=== PATIENT | male | born 1990 | race Caucasian/White ===

== ENCOUNTER 2016-12-02 09:39 | Emergency (ER) | payer BC ==
[~2016-12-02] VITALS: Ht 175.3 cm; Wt 81.3 kg
[~2016-12-02 09:39] MED LIST: MULT-106 PO
[2016-12-02 09:41] VITALS: BP 117/74; TEMP 36.6; Ht 175.3 cm; Wt 81.3 kg
--- NOTE | 2016-12-02 10:08 | EMERGENCY ROOM VISIT NOTE ---
ED Visit Note First contact with patient: 09:47 CHIEF COMPLAINT: Suture removal HISTORY OF PRESENT ILLNESS: This 26-year-old male patient returns to the ED today for removal of sutures that were placed 11 days ago. There has been no swelling, redness, or drainage from the wound. The patient feels like the laceration is healing well. REVIEW OF SYSTEMS: A 6 system review of systems was completed with positives and pertinent negatives listed in the HPI. PMH: Unchanged from previous visit. ALLERGIES: Benadryl PHYSICAL EXAM: Vital Signs: Reviewed Nurse's notes, vital signs stable. GENERAL : This is a 26-year-old male, in no acute distress. SKIN: There is a sutured wound on the scalp with no signs of infection. There is no erythema, swelling, or tenderness. EMERGENCY DEPARTMENT COURSE: 6 sutures and 3 meka were removed without any difficulty and there was no separation of the wound edges. The patient was discharged home in good condition. DIAGNOSIS: Healing laceration and suture removal DISCHARGE INSTRUCTIONS AND TREATMENT: Wash any remaining crusts off of the wound today and resume your normal activities. Current/Historical Medications Scheduled Multiple Vitamins W/ Minerals (One Daily Mens), 1 TAB PO DAILY Allergies Coded Allergies: Diphenhydramine (Unverified Allergy, Unknown, UNKNOWN, 02/26/16) Vital Signs Date Time Temp Pulse Resp B/P (MAP) Pulse Ox O2 Delivery O2 Flow Rate FiO2 12/02/16 10:26 72 16 96 12/02/16 09:41 36.6 74 16 117/74 97 Room Air Departure Information Impression Primary Impression: Encounter for removal of sutures Dispostion Home / Self-Care Condition GOOD Referrals No Doctor, Assigned (PCP) Patient Instructions [facility] Additional Instructions Wash any remaining crusts off of the wound today and resume your normal activities.
[2016-12-02 10:26] VITALS: PULSE 72; O2SAT 96
== END 2016-12-02 10:27 | disposition home or self-care (01) ==
LOC: C.EDB 09:40 → C.EDA 10:27
DX: Z48.02 Encounter for removal of sutures (principal)

== ENCOUNTER 2017-06-11 03:53 | Emergency (ER) | payer BC, OTHER ==
[2017-06-11] MEDS ORDERED: LORAZEPAM 2 MG/ML 1 ML VIAL IV ONE (03:55)
[2017-06-11] MEDS ORDERED: ETOMIDATE 2 MG/ML 20 ML VIAL IV ONE (03:55)
[2017-06-11] MEDS ORDERED: SUCCINYLCHOLINE CHLORIDE 20 MG/ML 10 ML VIAL IV ONE (03:55)
[2017-06-11] MEDS ORDERED: RAPID SEQUENCE INDUCTION BAG ONE (03:57)
[2017-06-11] MEDS ORDERED: SODIUM CHLORIDE 0.9% 1000ML 2,000 ML IV STA (04:04)
[2017-06-11 04:05] VITALS: O2SAT 98
[2017-06-11] MEDS ORDERED: PROPOFOL IV EMULSION 10 MG/ML 100 ML VIAL IV ONE ×2 (04:07→06:42)
[2017-06-11] MEDS ORDERED: LORAZEPAM 2 MG/ML 1 ML VIAL ONE (04:10)
--- NOTE | 2017-06-11 04:13 | EMERGENCY ROOM VISIT NOTE ---
History Report prepared by Maria Guadalupe: Derik Mcconnell Under the Supervision of: Dr. Emi Castellanos D.O. First contact with patient: 03:56 Stated Complaint: FALL History of Present Illness The patient is a 26 year old male who presents to the Emergency Room with complaints of constant head trauma following a fall occurring tonight. Per EMS, the patient was reported to have fallen about 10-15 feet out of a first story window. EMS notes that the patient was found face down in the dirt directly below the window. EMS reports that the patient was reported to have jumped out of the window or have fallen over the railing. EMS states that the patient was short of respirations and found to also have a right knee injury and abrasions to the right side. Upon transport, EMS notes that the patient was found to be breathing 30/40 times/minute, have an upright gaze, equal lung sounds, a stable pelvis, a blood sugar level of 117, and a blood pressure of 159/96. HPI limited secondary to unresponsiveness. Source of History: EMS History Limited By: other (unresponsiveness) Onset: tonight Position: head Timing: constant Note: EMS notes that the patient also has a right knee injury, and abrasions to the right side. Review of Systems ROS limited secondary to unresponsiveness. Past Medical & Surgical Medical Problems: (1) No chronic problems Family History Diabetes mellitus Heart disease Hypertension Seizures Social History Smoking Status: Never Smoker Alcohol Use: occasionally Drug Use: none Marital Status: single Housing Status: lives with roommate Occupation Status: [employer] student Current/Historical Medications Unable to Obtain Active Prescriptions or Reported Meds Allergies Coded Allergies: Diphenhydramine (Unverified Allergy, Unknown, UNKNOWN, 02/26/16) Physical Exam Vital Signs Date Time Temp Pulse Resp B/P (MAP) Pulse Ox O2 Delivery O2 Flow Rate FiO2 06/11/17 06:25 90 13 92/55 100 06/11/17 06:20 87 11 102/70 100 06/11/17 06:15 96 22 108/62 100 06/11/17 06:10 89 15 100/62 100 06/11/17 06:05 114 20 138/75 99 06/11/17 06:00 87 18 109/66 100 06/11/17 05:57 36.4 103 20 107/63 100 Mechanical Ventilator 35 06/11/17 05:50 90 13 112/63 100 06/11/17 05:45 103 20 137/82 100 06/11/17 05:40 91 15 115/70 100 06/11/17 05:35 85 15 111/68 100 06/11/17 05:31 98 23 120/75 100 Mechanical Ventilator 06/11/17 05:26 87 15 107/56 100 Mechanical Ventilator 06/11/17 05:21 85 16 111/80 100 Mechanical Ventilator 06/11/17 05:16 98 25 101/66 100 Mechanical Ventilator 06/11/17 05:11 97 27 118/78 100 Mechanical Ventilator 06/11/17 05:06 88 25 115/68 100 Mechanical Ventilator 06/11/17 05:02 35 06/11/17 05:01 85 18 107/66 100 Mechanical Ventilator 06/11/17 04:56 92 18 104/65 100 Mechanical Ventilator 06/11/17 04:51 88 20 108/65 100 Mechanical Ventilator 06/11/17 04:47 91/61 100 Mechanical Ventilator 06/11/17 04:41 90 20 122/76 100 Mechanical Ventilator 06/11/17 04:39 96 130/81 100 Mechanical Ventilator 06/11/17 04:05 99 06/11/17 04:05 35.9 129 24 173/118 98 Ambu-Bag 06/11/17 04:05 98 Ambu-Bag Physical Exam GENERAL: well appearing, well nourished, non-toxic, smell of ETOH, patient back boarded and collared, no copious secretions, vital signs stable EYE EXAM: normal conjunctiva, PERRL and EOM's grossly intact, pupils were mildly dilated bilaterally but both reactive NOSE: Dried blood around nares bilaterally, no active bleed. No septal hematoma. OROPHARYNX: no exudate, no erythema, lips, buccal mucosa, and tongue normal and mucous membranes are moist, Dried blood noted on patient's lips, no other blood on patient's oropharynx NECK: supple, no nuchal rigidity, no adenopathy, non-tender LUNGS: Clear to auscultation. Normal chest wall mechanics, no crepitus, bilateral breath sounds HEART: no murmurs, S1 normal and S2 normal CHEST: equal rise and fall with bagging ABDOMEN: abdomen soft, non-tender, normo-active bowel sounds, no masses, no rebound or guarding, no obvious trauma, pelvis stable BACK: Back is symmetrical on inspection and there is no deformity, no midline tenderness, no CVA tenderness. RECTAL: Normal tone. SKIN: no rashes and no bruising MUSCULOSKELETAL: No crepitus to chest wall or in extremities UPPER EXTREMITIES: upper extremities are grossly normal, no obvious deformities , contusion and superficial abrasion noted to right elbow, normal distal pulses LOWER EXTREMITIES: No pitting edema, no obvious deformities, laceration to right knee, normal distal pulses NEURO EXAM: GSC 3, questionable decorticate posturing noted, no active seizures. Medical Decision & Procedures ER Provider Diagnostic Interpretation: Radiology results have been interpreted by the radiologist and reviewed by me. CT HEAD: Limited by artifact but exam is diagnostic for ICH. Intra-axial bleeds, largest in the right frontal vertex measuring about 9 mm in size. Other punctate intra- axial bleeds suspected. Subarachnoid hemorrhage suggested, example cortical sulci most prominent in region of right sylvian fissure. There could be an intra -axial bleed in this area, as well. No skull fractures identified. Radiologist: Abelardo Sterling M.D. CT FACIAL: Limited by artifact. Axial and coronal images. Fracture of nasal bones and nasal septum. CT C SPINE: Patient rotated. No evidence of acute fracture or malalignment. Radiologist: Abelardo Sterling M.D. RIGHT ELBOW X-RAY: No fracture. No dislocation. KNEE X-RAY: No fracture. No dislocation. CT CHEST With Contrast: CT ABDOMEN & PELVIS: Limited by artifact. Suspect combination and of atelectasis and lung contusions, example right upper lobe. Allowing for artifact, no aortic dissection. Limited by artifact but no traumatic findings within the abdomen or pelvis identified. There is an ossific density anterior to the lower sacrum/coccyx. Difficult exclude subtle fracture of sacrum/coccyx. No displaced fractures seen. CT T SPINE: CT L SPINE: No acute fracture or malalignment of the thoracic or lumbar spine identified. L5 pars incidentally noted. Radiologist: Abelardo Sterling M.D. KUB X-RAY: OG tube in good position. Laboratory Results 06/11/17 04:05 Red Blood Count 4.93, Mean Corpuscular Volume 92.5, Mean Corpuscular Hemoglobin 33.1, Mean Corpuscular Hemoglobin Concent 35.7, Mean Platelet Volume 8.0, Neutrophils (%) (Auto) 39.4, Lymphocytes (%) (Auto) 43.3, Monocytes (%) (Auto) 6.9, Eosinophils (%) (Auto) 9.3, Basophils (%) (Auto) 0.7, Neutrophils # (Auto) 4.43, Lymphocytes # (Auto) 4.87, Monocytes # (Auto) 0.77, Eosinophils # (Auto) 1.05, Basophils # (Auto) 0.08 06/11/17 04:05 Test 06/11/17 04:05 06/11/17 04:11 06/11/17 04:13 06/11/17 04:53 White Blood Count 11.24 K/uL (4.8-10.8) Red Blood Count 4.93 M/uL (4.7-6.1) Hemoglobin 16.3 g/dL (14.0-18.0) Hematocrit 45.6 % (42-52) Mean Corpuscular Volume 92.5 fL (80-100) Mean Corpuscular Hemoglobin 33.1 pg (25-34) Mean Corpuscular Hemoglobin Concent 35.7 g/dl (32-36) Platelet Count 252 K/uL (130-400) Mean Platelet Volume 8.0 fL (7.4-10.4) Neutrophils (%) (Auto) 39.4 % Lymphocytes (%) (Auto) 43.3 % Monocytes (%) (Auto) 6.9 % Eosinophils (%) (Auto) 9.3 % Basophils (%) (Auto) 0.7 % Neutrophils # (Auto) 4.43 K/uL (1.4-6.5) Lymphocytes # (Auto) 4.87 K/uL (1.2-3.4) Monocytes # (Auto) 0.77 K/uL (0.11-0.59) Eosinophils # (Auto) 1.05 K/uL (0-0.5) Basophils # (Auto) 0.08 K/uL (0-0.2) RDW Standard Deviation 42.4 fL (36.4-46.3) RDW Coefficient of Variation 12.6 % (11.5-14.5) Immature Granulocyte % (Auto) 0.4 % Immature Granulocyte # (Auto) 0.04 K/uL (0.00-0.02) Estimated GFR () 101.6 Estimated GFR (Non- 87.7 BUN/Creatinine Ratio 8.9 (10-20) Calcium Level 8.2 mg/dl (8.5-10.1) Total Bilirubin 0.5 mg/dl (0.2-1) Direct Bilirubin 0.2 mg/dl (0-0.2) Aspartate Amino Transf (AST/SGOT) 97 U/L (15-37) Alanine Aminotransferase (ALT/SGPT) 82 U/L (12-78) Alkaline Phosphatase 62 U/L (45-117) Total Creatine Kinase 650 U/L (39-308) Creatine Kinase MB 5.1 ng/ml (0.5-3.6) Creatine Kinase MB Ratio 0.8 (0-3.0) Troponin I < 0.015 ng/ml (0-0.045) Total Protein 8.1 gm/dl (6.4-8.2) Albumin 4.2 gm/dl (3.4-5.0) Lipase 221 U/L (73-393) Ethyl Alcohol mg/dL 330.0 mg/dl (0-3) Urine Color YELLOW Urine Appearance CLEAR (CLEAR) Urine pH 5.5 (4.5-7.5) Urine Specific [place] 1.005 (1.000-1.030) Urine Protein 2+ (NEG) Urine Glucose (UA) NEG (NEG) Urine Ketones NEG (NEG) Urine Occult Blood 3+ (NEG) Urine Nitrite NEG (NEG) Urine Bilirubin NEG (NEG) Urine Urobilinogen NEG (NEG) Urine Leukocyte Esterase NEG (NEG) Urine WBC (Auto) 0 /hpf (0-5) Urine RBC (Auto) 0-4 /hpf (0-4) Urine Hyaline Casts (Auto) 0 /lpf (0-5) Urine Epithelial Cells (Auto) 0-5 /lpf (0-5) Urine Bacteria (Auto) NEG (NEG) Urine Opiates Screen NEG (NEG) Urine Methadone, Qualitative NEG (NEG) Urine Barbiturates NEG (NEG) Urine Phencyclidine (PCP) Level NEG (NEG) Ur Amphetamine/Methamphetamine NEG (NEG) MDMA (Ecstasy) Screen NEG (NEG) Urine Benzodiazepines Screen NEG (NEG) Urine Cocaine Metabolite NEG (NEG) Urine Marijuana (THC) NEG (NEG) Bedside Chloride 99 mEq/L (101-112) Bedside Total CO2 26 mEq/l (24-31) Anion Gap 21.0 mmol/L (16-25) Bedside Blood Urea Nitrogen 11 mg/dl (7-18) Bedside Creatinine 1.6 mg/dl (0.6-1.3) Bedside Glucose (other) 116 mg/dl (70-99) Bedside Ionized Calcium (Glenn) 1.12 mmol/l (1.12-1.32) Bedside Hemoglobin 15.3 g/dl (14.0-18.0) Bedside Hematocrit 45 % (42-52) Bedside Blood Gas pH (LAB) 7.28 (7.35-7.45) Bedside Blood Gas pCO2 (LAB) 49 mmHg (35-46) Bedside Blood Gas pO2 (LAB) 195 mmHg (80-95) Bedside Blood Gas HCO3 (LAB) 23 meq/L (19-24) Bedside Blood Gas Total CO2 25 mEq/l (24-31) Bedside Blood Gas Base Excess (LAB) -4.0 meq/L (-9-1.8) Bedside Blood Gas O2 Saturation 100.0 % (90-95) Bedside Sodium 139 mEq/L (135-144) Bedside Potassium 4.4 mEq/L (3.3-5.0) Laboratory results per my review. Medications Administered Medications (Trade) Dose Ordered Sig/Bernard Route Start Time Stop Time Status Last Admin Dose Admin Cefazolin Sodium (Ancef 2000mg Iv Push) 2,000 mg NOW ONCE IV 06/11/17 04:15 06/11/17 04:16 DC 06/11/17 05:23 2,000 MG Sodium Chloride 2,000 ml @ 999 mls/hr Q2H1M STAT IV 06/11/17 04:04 06/11/17 06:04 DC 06/11/17 05:29 999 MLS/HR Propofol (Diprivan Iv Emulsion 100ml Vial) 1 dose STK-MED ONCE IV 06/11/17 04:07 06/11/17 04:08 DC 06/11/17 04:10 1 DOSE Diphtheria/ Pertussis/Tetanus Vacc (Adacel Inj) 0.5 ml ONCE ONCE IM. 06/11/17 04:15 06/11/17 04:16 DC 06/11/17 05:23 0.5 ML Lorazepam (Ativan Inj) 2 mg STK-MED ONCE .ROUTE 06/11/17 04:10 06/11/17 04:11 DC 06/11/17 04:17 2 MG Sodium Chloride 1,000 ml @ 125 mls/hr Q8H STAT IV 06/11/17 05:24 06/11/17 08:30 DC 06/11/17 05:24 125 MLS/HR Levetiracetam 1000 mg/Dextrose 110 ml @ 440 mls/hr ONE ONCE IV 06/11/17 06:00 06/11/17 06:14 DC 06/11/17 06:09 440 MLS/HR Pantoprazole Sodium 40 mg/ Syringe 10 ml @ 5 mls/min NOW ONCE IV 06/11/17 06:00 06/11/17 06:01 DC 06/11/17 06:12 5 MLS/MIN Procedure Endotracheal Intubation Indication GCS 3, suspected head trauma. The patient was on 100% oxygen via NRB prior to the procedure. Suction, airway equipment, RSI drugs, respiratory equipment, and appropriate personnel were prepared prior to the initiation of the procedure. A time out was taken. Induction was performed with Etomidate and Succinylcholine. After observing the clinical benefit of the medications, the airway was easily visualized utilizing video laryngoscopy. A 7.5 size ETT tube was placed atraumatically to 25 cm using standard technique. The cuff inflated without signs of malfunction. There were bilateral breath sounds, positive colormetric change, no gastric sounds, a good capnography waveform, and post procedure pulse oximetry was 100%. Post intubation sedation and paralysis was administered using propofol. There were no complications. ED Course 0353: The patient was evaluated in room B1. A complete history and physical exam was performed. 0355: The patient responded to an external rub although minimal movement noted. 0358: An IV was placed and a bedside US was performed. No pericardial fluid noted, no obvious fluid noted on FAST. 0359: A catheter was placed. 0404: Sodium Chloride 2000 ml @ 999 mls/hr IV IV 0405: The patient was intubated. 0413: The patient was taken to CT. 0415: Adacel Inj 0.5ml IM, Cefazolin Sodium 2000mg IV 0446: The patient was observed to have bilateral breath sounds , no copious secretion, a soft abdomen, a stable pelvis, a laceration noted to the right knee , and stable vital signs. 0514: I reviewed the patient's case with Dr. Motley - Trauma Surgery, [place]. He will accept the patient for transfer and further treatment. 0525: I attempted to call the patient's mother at the number listed on registration. There was no answer and I was unable to leave a voicemail. 0554: The patient had what looked like a seizure. Was given Ativan 2 mg IV. Repeat assessment of the patient otherwise unchanged. 0600: Pantoprazole Sodium 40 mg/Syringe 10 ml @ 5 mls/min IV, Levetiracetam 1000mg/Dextrose 110ml @ 440 mls/hr IV 0615: I reevaluated the patient. 0637: I rechecked the patient. A crew is here to transport him to [place]. 0640: I retried calling the patient's mother with a new number. 0646: I spoke to Renae Silvestre - patient's mother. She is going to drive to [place]. Medical Decision Differential diagnosis: Etiologies such as fracture, dislocation, intra-abdominal, pneumothorax, intrathoracic , intracranial, neurologic, as well as other traumatic pathologies were entertained. Patient brought in as a trauma patient on a TRAUMA ALERT activated. Patient able to be easily ventilated and maintained adequate oxygenation with assisted ventilations with BVM by the prehospital crew and while we were preparing for intubation. No gross deformities noted on primary assessment. Mild swelling noted at the nasal bridge, and dried blood noted around bilateral nares and on the patient's lips. Patient intubated on first pass, and immediately taken to CAT scan. Blood work drawn, patient maintained on propofol for adequate sedation. Patient had minimal response to painful stimuli, and at one point appeared to have what resembled decorticate posturing. Patient found to have significant family elevated serum alcohol level. Other labs reassuring. She is vital signs remained stable, IV fluids given. Laceration found of the patient's knee as well as some superficial abrasions, patient covered with IV Ancef and tetanus shot updated. Patient had briefly with nursing staff who witnessed the described as a seizure while waiting for the transportation crew, Keppra 1 g IV added as a precaution. Repeat physical exams were unchanged. Pt with blankets and bear hugger on for mild hypothermia. Several attempts made to get a hold of patient's family and his family successful after the patient was already en route to [facility]. Patient remained hemodynamically stable prior to transfer. Head Trauma GCS Score: 3 Medication Reconcilliation Current Medication List: was personally reviewed by me Blood Pressure Screening Patient's blood pressure: Normal blood pressure Consults Time Called: 05 Consulting Physician: Dr. Shin - Trauma Surgery[facility]yn Returned Call: 0514 I reviewed the patient's case with Dr. Shin - Trauma [facility] [place]. He will accept the patient for transfer and further treatment. Impression Primary Impression: Intracranial hemorrhage Additional Impressions: Closed head injury Fall Pulmonary contusion Nasal bone fracture Laceration Alcohol intoxication Hypothermia Critical Care I have personally spent greater than 75 minutes of critical care time in the direct management of this patient. This includes bedside care, interpretation of diagnostic studies, and testing, discussion with consultants, patient, and family members, and other required patient management activities. This 75 minutes is in excess of all separately billable procedures. Scribe Attestation The scribe's documentation has been prepared under my direction and personally reviewed by me in its entirety. I confirm that the note above accurately reflects all work, treatment, procedures, and medical decision making performed by me. Departure Information Dispostion Transfer Acute Care Facility Prescriptions Unable to Obtain Active Prescriptions or Reported Meds Referrals No Doctor, Assigned (PCP) Problem Qualifiers Additional Impressions: Closed head injury Encounter type: initial encounter Qualified Codes: S09.90XA - Unspecified injury of head, initial encounter Fall Encounter type: initial encounter Qualified Codes: W19.XXXA - Unspecified fall, initial encounter Pulmonary contusion Encounter type: initial encounter Laterality: bilateral Qualified Codes: S27.322A - Contusion of lung, bilateral, initial encounter Nasal bone fracture Encounter type: initial encounter Fracture type: closed Qualified Codes: S02.2XXA - Fracture of nasal bones, initial encounter for closed fracture Alcohol intoxication Complication of substance-induced condition: uncomplicated Qualified Codes: F10.920 - Alcohol use, unspecified with intoxication, uncomplicated Hypothermia Encounter type: initial encounter Qualified Codes: T68.XXXA - Hypothermia, initial encounter
[2017-06-11] MEDS ORDERED: CEFAZOLIN SOD 2000MG/15 ML IV PUSH IV ONE (04:15)
[2017-06-11] MEDS ORDERED: DIPHTHERIA/TETANUS/PERTUSSIS 0.5 ML SYR/VIAL IM. ONE (04:15)
[2017-06-11 04:17] LABS: BASO % 0.7 %; BASO ABS # 0.08 K/uL (0-0.2); EOS % 9.3 %; EOS ABS # 1.05 K/uL (0-0.5); HEMATOCRIT 45.6 % (42-52); HEMOGLOBIN 16.3 g/dL (14.0-18.0); IG# 0.04 K/uL (0.00-0.02); LYMPH % 43.3 %; LYMPH ABS # 4.87 K/uL (1.2-3.4); MEAN CELL VOLUME 92.5 fL (80-100); MEAN CORPUSCULAR HEMOGLOBIN 33.1 pg (25-34); MEAN CORPUSCULAR HGB CONC 35.7 g/dl (32-36); MONO % 6.9 %; MONO ABS # 0.77 K/uL (0.11-0.59); NEUT % 39.4 %; NEUT ABS # 4.43 K/uL (1.4-6.5); PLATELET COUNT 252 K/uL (130-400); RED CELL DISTRIBUTION WIDTH CV 12.6 % (11.5-14.5); RED CELL DISTRIBUTION WIDTH SD 42.4 fL (36.4-46.3); WHITE BLOOD COUNT 11.24 K/uL (4.8-10.8)
[2017-06-11 04:27] LABS: ISTAT CREATININE 1.6 mg/dl (0.6-1.3); ISTAT IONIZED CALCIUM 1.12 mmol/l (1.12-1.32); ISTAT POTASSIUM 3.5 mEq/L (3.3-5.0)
[2017-06-11 04:35] LABS: ALBUMIN 4.2 gm/dl (3.4-5.0); ALT/SGPT 82 U/L (12-78); AST/SGOT 97 U/L (15-37); BLOOD UREA NITROGEN 10 mg/dl (7-18); CALCIUM 8.2 mg/dl (8.5-10.1); CARBON DIOXIDE 25 mmol/L (21-32); CREATININE 1.16 mg/dl (0.60-1.40); GLUCOSE 114 mg/dl (70-99); LIPASE 221 U/L (73-393); POTASSIUM 3.5 mmol/L (3.5-5.1); SODIUM 138 mmol/L (136-145)
[2017-06-11 04:40] LABS: ALKALINE PHOSPHATASE 62 U/L (45-117); CKMB 5.1 ng/ml (0.5-3.6); TOTAL PROTEIN 8.1 gm/dl (6.4-8.2)
[2017-06-11 05:05] LABS: ISTAT POTASSIUM 4.4 mEq/L (3.3-5.0); ISTAT SODIUM 139 mEq/L (135-144)
[2017-06-11] MEDS ORDERED: CEFAZOLIN SOD 1000MG/7.5 ML IV PUSH IV ONE (05:17)
[2017-06-11] MEDS ORDERED: SODIUM CHLORIDE 0.9% 1000ML 1,000 ML IV STA (05:24)
[2017-06-11 05:57] VITALS: TEMP 36.4
[2017-06-11] MEDS ORDERED: LEVETIRACETAM IV 1,000 MG in DEXTROSE 5% 100ML 100 ML IV ONE (06:00)
[2017-06-11] MEDS ORDERED: PANTOprazole INJ 40 MG in SYRINGE 0 ML IV ONE (06:00)
--- NOTE | 2017-06-11 06:11 | DIAGNOSTIC IMAGING REPORT ---
R ELBOW 2 VIEWS CLINICAL HISTORY: trauma pain COMPARISON: None. DISCUSSION: The bones and joint spaces appear intact. There is no evidence of fracture, dislocation or bony disease. There is no evidence for soft tissue swelling. IMPRESSION: Negative study. The above report was generated using voice recognition software. It may contain grammatical, syntax or spelling errors. Electronically signed by: Luca Hagan M.D. 06/11/2017 6:09 AM Dictated Date/Time: 06/11/2017 6:08 AM
[2017-06-11 06:25] VITALS: BP 92/55; PULSE 90; O2SAT 100
--- NOTE | 2017-06-11 06:28 | DIAGNOSTIC IMAGING REPORT ---
R KNEE 1 OR 2 VIEWS ROUTINE CLINICAL HISTORY: trauma pain COMPARISON: None. DISCUSSION: The bones and joint spaces appear intact. There is no evidence of fracture, dislocation or bony disease. There is no evidence for soft tissue swelling. IMPRESSION: Negative study. The above report was generated using voice recognition software. It may contain grammatical, syntax or spelling errors. Electronically signed by: Luca Hagan M.D. 06/11/2017 6:27 AM Dictated Date/Time: 06/11/2017 6:27 AM
--- NOTE | 2017-06-11 06:40 | DIAGNOSTIC IMAGING REPORT ---
LUMBAR SPINE WITHOUT CT DOSE: 2863.72 mGy.cm HISTORY: Pain trauma TECHNIQUE: Multiaxial CT images of the lumbar spine were performed and reformatted in the sagittal and coronal plane without the use of contrast. A dose lowering technique was utilized adhering to the principles of ALARA. COMPARISON: None. FINDINGS: No fractures. No subluxation. Paraspinal soft tissues are unremarkable. IMPRESSION: No fractures within the lumbar spine. The above report was generated using voice recognition software. It may contain grammatical, syntax or spelling errors. Electronically signed by: Luca Hagan M.D. 06/11/2017 6:38 AM Dictated Date/Time: 06/11/2017 6:37 AM
--- NOTE | 2017-06-11 06:43 | DIAGNOSTIC IMAGING REPORT ---
(CHEST) THORAX WITH CT DOSE: HISTORY: Trauma. Pain. trauma TECHNIQUE: Multiaxial CT images of the chest were performed following the intravenous administration of contrast. A dose lowering technique was utilized adhering to the principles of ALARA. COMPARISON: None. FINDINGS: Mild bibasilar atelectasis. Endotracheal tube slightly above the jono. Thoracic aorta unremarkable. Scattered upper lobe atelectatic change. IMPRESSION: 1. Endotracheal tube 1 cm above the jono. 2. Scattered atelectatic/minimal contusion-type change. 3. Otherwise negative study. The above report was generated using voice recognition software. It may contain grammatical, syntax or spelling errors. Electronically signed by: Luca Hagan M.D. 06/11/2017 6:42 AM Dictated Date/Time: 06/11/2017 6:39 AM
--- NOTE | 2017-06-11 07:02 | DIAGNOSTIC IMAGING REPORT ---
KUB CLINICAL HISTORY: OG placement tube position COMPARISON STUDY: 07/06/2015 FINDINGS: Nasogastric tube located in the gastric fundus. Nonobstructive bowel pattern. Contrast within the urinary tracts from a prior contrast study. IMPRESSION: Nasogastric tube within the gastric fundus. The above report was generated using voice recognition software. It may contain grammatical, syntax or spelling errors. Electronically signed by: Luca Hagan M.D. 06/11/2017 7:00 AM Dictated Date/Time: 06/11/2017 7:00 AM
--- NOTE | 2017-06-11 07:10 | DIAGNOSTIC IMAGING REPORT ---
THORACIC SPINE CT CT DOSE: HISTORY: trauma TECHNIQUE: Multiaxial CT images of the thoracic spine were performed and reformatted in the sagittal and coronal plane without the use of contrast. A dose lowering technique was utilized adhering to the principles of ALARA. COMPARISON: None. FINDINGS: No fractures. No subluxation. Paraspinal soft tissues are unremarkable. IMPRESSION: No fractures within the thoracic spine. Electronically signed by: Markus Mazariegos M.D. 06/11/2017 7:08 AM Dictated Date/Time: 06/11/2017 7:07 AM
--- NOTE | 2017-06-11 07:13 | DIAGNOSTIC IMAGING REPORT ---
MAXILLOFACIAL CT CT DOSE: HISTORY: trauma TECHNIQUE: Multiaxial CT images of the maxillofacial region were performed and reformatted in the coronal plane without the use of contrast. A dose lowering technique was utilized adhering to the principles of ALARA. COMPARISON: None. FINDINGS: Mildly displaced fractures of the nasal bones. There is also small fracture within the anterior nasal septum. An endotracheal tube is noted. The visualized cervical spine, mandible, skull base, pterygoid plates, zygomatic arches, and orbital floors are intact. Right-sided intracranial hemorrhage is better appreciated on the same day head CT. The orbits are unremarkable. IMPRESSION: Mildly displaced nasal bone fractures. There is also small fracture within the anterior nasal septum. Electronically signed by: Markus Mazariegos M.D. 06/11/2017 7:12 AM Dictated Date/Time: 06/11/2017 7:09 AM
--- NOTE | 2017-06-11 07:13 | DIAGNOSTIC IMAGING REPORT ---
CT SCAN OF THE BRAIN WITHOUT IV CONTRAST CLINICAL HISTORY: Trauma. COMPARISON STUDY: CT of the brain dated 02/26/2016. TECHNIQUE: Unenhanced axial CT scan of the brain is performed from the vertex to the skull base. A dose lowering technique was utilized adhering to the principles of ALARA. The examination is degraded by motion artifact. FINDINGS: Brain parenchyma: There is an 8 mm focus of hemorrhage in the high right frontal lobe seen on image #24. An 8 mm focus of hemorrhage is seen in the right temporal lobe on image #15. Some of this may extend into the subarachnoid space within the right sylvian fissure. Additional punctate foci of hemorrhage are excluded. There is no significant surrounding edema. There is no midline shift or evidence of acute territorial ischemia by CT criteria. Traylor-white matter appears preserved. No extra-axial fluid collection is seen. Ventricles, sulci, cisterns: Normal in configuration. Intracranial vasculature: The visualized intracranial vasculature at the skull base is normal in appearance. Calvarium: There is no depressed calvarial fracture. Sinuses and mastoids: The visualized paranasal sinuses are clear. The mastoid air cells are well pneumatized. Orbits: The bony orbits are grossly intact. IMPRESSION: 1. Motion degraded examination. 2. There is a subcentimeter focus of hemorrhage identified in the right frontal lobe. 3. There is a focus of parenchymal hemorrhage identified in the right temporal lobe. This may extend into the subarachnoid space in the sylvian fissure. 4. Additional punctate foci of hemorrhage are not excluded. 5. There is no midline shift or evidence of acute territorial ischemia by CT criteria. 6. There is no depressed calvarial fracture. Electronically signed by: Josiah Coreas M.D. 06/11/2017 7:11 AM Dictated Date/Time: 06/11/2017 7:06 AM
--- NOTE | 2017-06-11 07:29 | DIAGNOSTIC IMAGING REPORT ---
CT SCAN OF THE CERVICAL SPINE CLINICAL HISTORY: Trauma. COMPARISON STUDY: No priors. TECHNIQUE: CT scan of the cervical spine is performed from the skull base to the upper thoracic spine. Images are reviewed in the axial, sagittal, and coronal planes. IV contrast was not administered for this examination. A dose lowering technique was utilized adhering to the principles of ALARA. FINDINGS: Skeletal structures: The skeletal structures are well mineralized. There is no evidence of fracture or subluxation involving the cervical spine. Vertebral body height and alignment are maintained. A minimal superior end plate compression deformity is questioned involving T2. There is straightening of the cervical lordosis. The odontoid process and lateral masses are intact. The atlantoaxial articulation is preserved. The spinous processes appear intact. Intervertebral discs: The disc spaces are well maintained. Central canal: Widely patent. Soft tissues: The prevertebral and paraspinous soft tissues are within normal limits. Calvarium: The visualized calvarium at the skull base appears intact. Brain parenchyma: Right temporal lobe hemorrhage is partially imaged. See report of CT of the brain performed concurrently. Sinuses and mastoids: The visualized paranasal sinuses are clear. The mastoid air cells are well pneumatized. Lung apices: The endotracheal tube is in place. Partially imaged apical lung parenchyma is clear as visualized. IMPRESSION: 1. There is no evidence of fracture or subluxation involving the cervical spine. 2. Question a minimal superior endplate compression deformity of T2. 3. A small focus of hemorrhage is partially imaged in the right temporal lobe. See report of CT of the brain performed concurrently for detailed intracranial findings. Electronically signed by: Josiah Coreas M.D. 06/11/2017 7:27 AM Dictated Date/Time: 06/11/2017 7:22 AM
--- NOTE | 2017-06-11 07:33 | DIAGNOSTIC IMAGING REPORT ---
ABDOMEN AND PELVIS CT WITH IV CONTRAST CT DOSE: HISTORY: trauma TECHNIQUE: Multiaxial CT images of the abdomen and pelvis were performed following the use of intravenous contrast. A dose lowering technique was utilized adhering to the principles of ALARA. COMPARISON STUDY: None. FINDINGS: Bilateral L5 spondylolysis. No evident fractures identified within the visualized osseous structures of the abdomen and pelvis. Small ossific density anterior to the coccyx. A Montalvo catheter is within the decompressed bladder. Abdominal structures are limited by streak artifact from the overlying quality assurance monitor/leads. Patchy densities at the lung bases posteriorly favor dependent change. No pneumoperitoneum. No pneumatosis. The liver, gallbladder, pancreas, spleen, adrenal glands, and kidneys are unremarkable. No retroperitoneal lymphadenopathy or retroperitoneal hematoma. No pelvic free fluid. No bowel wall thickening or obstruction. A few sigmoid diverticula. Normal appendix. IMPRESSION: Suboptimal evaluation due to artifact. No definite acute abnormality within the abdomen or pelvis. Electronically signed by: Markus Mazariegos M.D. 06/11/2017 7:32 AM Dictated Date/Time: 06/11/2017 7:27 AM
== END 2017-06-11 06:39 | disposition short-term general hospital (02) ==
LOC: EDBD 03:53 → C.EDB 03:54
DX: S09.90XA Unspecified injury of head, initial encounter (principal); S27.322A Contusion of lung, bilateral, initial encounter; S02.2XXA Fracture of nasal bones, initial encounter for closed fracture; F10.920 Alcohol use, unspecified with intoxication, uncomplicated; T68.XXXA Hypothermia, initial encounter; W13.4XXA Fall from, out of or through window, initial encounter; X58.XXXA Exposure to other specified factors, initial encounter; R56.9 Unspecified convulsions; Z83.3 Family history of diabetes mellitus; Z82.49 Family history of ischemic heart disease and other diseases of the circulatory system; Z82.0 Family history of epilepsy and other diseases of the nervous system; Z88.8 Allergy status to other drugs, medicaments and biological substances; Z23 Encounter for immunization